=== PATIENT | female | born 1940 | race Caucasian/White ===

== ENCOUNTER 2019-01-23 12:26 | Observation (INO) | payer MEDICARE, BC ==
[~2019-01-23 12:26] MED LIST: ISOVUE-370 76%-LOCM 1 ML ONE
[2019-01-23 13:26] LABS: #Eosinphils 0.2 thou/uL (0.0-0.7); #Monocytes 0.3 thou/uL (0.11-0.59); #Neutrophils 3.3 thou/uL (1.40-6.50); %Basophils 0.7 % (0.0-1.0); %Eosinophils 4.1 % (0.0-10.0); %Lymphocytes 34.6 % (21.0-51.0); %Monocytes 4.6 % (0.0-10.0); Hemoglobin 13.9 g/dL (12.0-16.0); Mean Corpuscular HGB CONC 32.9 g/dL (32.0-36.0); Mean Corpuscular Hemoglobin 30.3 pg (27.0-31.0); Mean Corpuscular Volume 92.3 fL (78.0-98.0); Platelet Count 252 thou/uL (130-400); RBC Distribution Width 12.1 % (11.5-14.5); Red Blood Cell (RBC) Count 4.56 mill/uL (4.20-5.40); White Blood Cell (WBC) Count 5.9 thou/uL (4.8-10.8)
[2019-01-23 13:37] LABS: INR-International Normal Ratio 0.9; PTT 29.1 SEC (22.9-36.1); Prothrombin Time 12.3 SEC (12.0-14.7)
[2019-01-23 13:43] LABS: Bilirubin Negative (Negative); Blood, Urine Negative (Negative); Clarity CLEAR (Clear); Glucose, Urine (Dipstick) Negative (Negative); Leukocyte Small (Negative); Nitrite Negative (Negative); Protein, Urine (Dipstick) Negative (Neg-Trace); Urobilinogen 0.2 mg/dL (0.2-1.0)
[2019-01-23 13:48] LABS: Bacteria/HPF None Seen HPF (None Seen); Hyaline Casts/LPF 0-3 HYALINE CAST LPF (0-3 Hyaline); Squamous Epithelial 0-3 HPF (0-3); WBC/HPF 0-3 HPF (0-3)
[2019-01-23 13:49] LABS: ALT (SGPT) 18 U/L (8-55); AST (SGOT) 22 U/L (5-34); Albumin 4.1 g/dL (3.4-4.8); Alkaline Phosphatase 77 U/L (40-150); Anion Gap 14 mmol/L (10-20); BUN (Urea Nitrogen) 23 mg/dL (9.8-20.1); Bilirubin, Total 0.8 mg/dL (0.2-1.2); Calc. Creatinine Clearance 0 mL/min (70-130); Carbon Dioxide 24 mmol/L (23-31); Chloride 104 mmol/L (98-107); Estimated GFR-MDRD 61; Globulin 2.8 g/dL (2.4-3.5); Glucose 90 mg/dL (83-110); Potassium 4.1 mmol/L (3.5-5.1); Protein, Total 6.9 g/dL (6.0-8.3); Sodium 138 mmol/L (136-145)
[2019-01-23 13:52] LABS: Amphetamine Not Detected (NotDetected); Barbiturates Screen Not Detected (NotDetected); Benzodiazepine Screen Not Detected (NotDetected); Cocaine Metabolite Screen Not Detected (NotDetected); Medtox Control Line Valid? VALID (VALID); Medtox Reader # READER 4; Methadone Not Detected (NotDetected); Methamphetamine Not Detected (NotDetected); Opiate Screen Not Detected (NotDetected); Oxycodone Screen Not Detected (NotDetected); Phencyclidine (PCP) Not Detected (NotDetected); THC/Cannabinoid Screen Not Detected (NotDetected); Tricyclic Screen Not Detected (NotDetected)
--- NOTE | 2019-01-23 14:06 | CT ---
Head CT without contrast 01/23/2019: COMPARISON: 05/11/2013 HISTORY: Blurred vision, difficulty speaking, altered mental status TECHNIQUE: Axial CT imaging at 5 mm intervals from vertex through skull base without contrast FINDINGS: The imaged paranasal sinuses and mastoid air cells are well aerated. There is no displaced calvarial fracture. No intracranial hemorrhage, midline shift, mass effect, or ventricular enlargement. IMPRESSION: No intracranial hemorrhage or displaced calvarial fracture.
[2019-01-23] MEDS ORDERED: diphenhydrAMINE 50 MG/ML VIAL ONE (14:22)
[2019-01-23] MEDS ORDERED: Acetaminophen 500 MG TAB ONE (14:22)
[2019-01-23] MEDS ORDERED: Metoclopramide HCl 10 MG/2 ML VIAL ONE (14:22)
[2019-01-23] MEDS ORDERED: Ondansetron PF 4 MG/2 ML Vial IVP PRN (15:57)
[2019-01-23] MEDS ORDERED: Acetaminophen 500 MG TAB PO PRN (15:57)
[2019-01-23] MEDS ORDERED: hydrALAZINE 20 MG/ML VIAL SLOW IVP PRN (15:57)
[2019-01-23] MEDS ORDERED: diphenhydrAMINE 25 MG CAP PO PRN (15:57)
--- NOTE | 2019-01-23 18:57 | HP ---
CHIEF COMPLAINT: Blurred vision, difficulty speaking. HISTORY OF PRESENT ILLNESS: Ms. Guzman is a very pleasant 78-year-old female with past medical history significant for history of transient ischemic attack in 2013 and ocular migraines diagnosed many years ago, who presented to the hospital with complaints of difficulty speaking along with blurred vision. The patient was on her way to a baby shower, and was shopping at the [employer] in [facility], when her symptoms began. She went to talk to the postal transportation clerk at the desk, and could not form the words that she was trying to say. The patient reports that she was not confused and knew what she wanted to say; however, could not form the words. She also reported some blurry vision. EMS was called, and the patient was taken to our facility for further workup and treatment. On admission, her symptoms had resolved. She had a brief recurrence of her symptoms while she was in the ER, and then quite quickly, her symptoms again completely resolved. In the ER, she did begin to have a slight headache, and was given migraine cocktail, which consisted of metoclopramide injection, diphenhydramine injection, oral Tylenol, and 500 mL bolus of IV saline. Upon my arrival to interview, the patient states that she feels back to her baseline. She is able to converse easily with myself and with her friends that are at the bedside. The patient states that she has had a history of ocular migraines in the past and the blurry vision is consistent with her previous symptoms; however, she does not usually have the difficulty speaking. Workup thus far has included a CT of the brain, which showed no intracranial abnormalities or hemorrhage. Her EKG shows normal sinus rhythm, no acute ST or T-wave changes. The patient was admitted at this facility in 2012, when she also complained of symptoms similar to today with expressive aphasia. Her workup in 2013 was negative. The patient has generally enjoyed good health. She was in her usual state of health up until the day. She reports no recent illnesses, fever, chills, or sick contacts. Her blood pressure on arrival to the ED was in the 180s systolic, but that has now trended down to the 150s systolic. REVIEW OF SYSTEMS: 12-point review of systems performed and is negative, except that as stated above. The patient has generally enjoyed very good health. She denies any blood in her urine or stool. She has had no fevers or chills. Her appetite has been good. She reports no unintentional weight loss. She follows regularly with her primary care physician, Dr. Arnold. ALLERGIES: BAND-AID. HOME MEDICATIONS: 1. Levothyroxine 88 mcg daily. 2. Atorvastatin 60 mg at bedtime. 3. Lunesta 3 mg at bedtime. 4. Aspirin 325 mg daily. 5. Zyrtec p.r.n. 6. Multivitamin daily. 7. Resveratrol supplement daily. 8. CoQ10 200 mg supplement daily. 9. Pepcid Complete. 10. Niacinamide 1000 mg daily. 11. Vitamin C supplement. 12. MiraLAX p.r.n. PAST MEDICAL HISTORY: Hypothyroidism; hyperlipidemia; previous TIA; basal and squamous cell carcinoma, status post excision; hyperlipidemia. PAST SURGICAL HISTORY: Appendectomy, tonsillectomy, total hysterectomy with bilateral salpingo-oophorectomy as well. She states her uterus was removed secondary to a benign tumor. SOCIAL HISTORY: The patient has a very remote history of smoking and quit when she was 39, which was approximately 40 years ago. She drinks alcohol very occasionally. There is no illicit drug use. The patient is a , her several years ago. She has 2 children and many grandchildren. 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 FAMILY HISTORY: Positive for colon cancer in her brother and positive for colon polyps in her mother. One of her sisters had breast cancer. CODE STATUS: The patient is a full code. PHYSICAL EXAMINATION: GENERAL: This is a very pleasant and well-appearing 78-year-old female, resting comfortably in the ER bed in no acute distress. HEENT: Head is atraumatic and normocephalic. Mucous membranes are moist. Extraocular movements intact. NECK: No lymphadenopathy. No carotid bruits. Trachea is midline. No JVD. CV: S1 and S2. Regular rate and rhythm. No appreciable murmurs, rubs, or gallops. LUNGS: Regular respiratory rate and pattern. Clear to auscultation bilaterally. ABDOMEN: Soft. Positive bowel sounds. Soft, nontender. No organomegaly. EXTREMITIES: +2 DP pulses bilaterally. No edema. SKIN: Warm and dry. No rashes or discolorations. NEUROLOGIC: Cranial nerves 2 through 12 are intact. The patient is alert, awake, and oriented, and has no speech deficits at this time. She is nonfocal. LABORATORY DATA: White blood cell count 5.9, hemoglobin 13.9, hematocrit 42.1, platelets are 252. PT 12.3, INR 0.9, APTT 29.1. Sodium 138, potassium 4.1, chloride 104, BUN 23, creatinine 0.89, calcium 10, bilirubin 0.8, AST 22, ALT 18 , alkaline phosphatase 77. Troponin is negative. TSH is 0.8483. Tox screen is negative. Urinalysis shows trace ketones and a small amount of leukocyte esterase, no white blood cell count or bacteria noted. IMAGING STUDIES: EKG shows sinus rhythm, no acute ST or T-wave changes. No arrhythmia noted. CT of the head shows no intracranial abnormality. ASSESSMENT: 1. Expressive aphasia and vision changes, questionable cerebrovascular accident/transient ischemia attack versus ocular migraine. 2. History of ocular migraines. 3. History of transient ischemic attack in 2012, on aspirin and statin. 4. Hypothyroidism. 5. Elevated blood pressure reading on arrival, trending down, no previous history or diagnosis of hypertension. 6. Hyperlipidemia. PLAN: Neurology consult has been placed by the ER doctor. We will proceed with brain MRI and CTA of the head and neck. We will also obtain a 2D transthoracic echocardiogram. We will continue telemetry monitoring to assess for any underlying arrhythmia while she is here. DVT and GI prophylaxis. We will also continue aspirin and statin along with her other home medications. Further recommendations based on findings of imaging and hospital course. This patient has been discussed with Dr. Curry, who agrees with the plan as outlined above. Job ID: [id number] [facility]
[2019-01-23 19:21] VITALS: BMI 25.0
--- NOTE | 2019-01-23 20:10 | CT ---
CTA HEAD WITH IV CONTRAST AND 3D POSTPROCESSING CTA NECK WITH IV CONTRAST AND 3D POSTPROCESSING 01/23/19 HISTORY: TIA. FINDINGS: There is calcified plaque. There is good flow in the vertebrobasilar and carotid artery systems on ei ther side. There is mild (up to 30%) stenosis of the right carotid bulb. No major branch occlusion, h igh grade stenosis or aneurysm formation is seen. The airway is patent. No cervical lymphadenopathy is seen. The parotid, submandibular and thyroid glands are unremarkable. There are degenerative changes in the spine. IMPRESSION: Mild stenotic changes without evidence of major branch occlusion, high grade stenosis or aneurysm for mation. This exam was interpreted in consultation with Dr Marcio Adler who concurs. POS: BRETT
[2019-01-23] MEDS ORDERED: Enoxaparin Sodium 40 MG/0.4 ML SYRINGE SC SCH (21:00)
[2019-01-23] MEDS ORDERED: Atorvastatin Calcium 40 MG TAB PO SCH (21:00)
[2019-01-23] MEDS ORDERED: Temazepam 15 MG CAP PO PRN (22:07)
[2019-01-23] MEDS: Famotidine 20 MG TAB PO SCH (22:37)
[2019-01-24 05:53] LABS: Cardiac Risk 4.2 (Less than 4.5)
[2019-01-24] MEDS ORDERED: Levothyroxine Sodium 88 MCG TAB PO SCH (06:00)
[2019-01-24] MEDS ORDERED: Lorazepam 1 MG TAB PO SCH ×2 (06:15→11:00)
[2019-01-24] MEDS: Famotidine 20 MG TAB PO SCH (08:55)
[2019-01-24] MEDS ORDERED: Aspirin 325 mg Enteric Coated Tablet PO SCH (09:00)
[2019-01-24] MEDS ORDERED: Lorazepam 2 MG/ML VIAL SLOW IVP SCH (10:45)
--- NOTE | 2019-01-24 13:34 | MRI ---
MRI BRAIN PERFORMED WITHOUT CONTRAST ENHANCEMENT: Date: 01/24/19 HISTORY: Slurred speech that has resolved. History of TIA in 2015. COMPARISON: Report of CT angio of head and brain that was performed yesterday. FINDINGS: There is some generalized ventricular and sulcal prominence. There is some increased T2 and FLAIR sig nal change within the white matter consistent with chronic white matter change. On the diffusion-weighted sequence, there is no evidence for any type of acute infarct. No evidence f or hemorrhage or mass effect. IMPRESSION: No acute intracranial abnormalities. POS: BRETT
[2019-01-24] MEDS ORDERED: Lisinopril 5 MG TAB PO SCH (15:30)
[2019-01-24 15:58] VITALS: BP 143/78; TEMP 98.6
--- NOTE | 2019-01-24 21:48 | CON ---
DATE OF CONSULTATION: 01/24/2019 CHIEF COMPLAINT: CVA. HISTORY OF PRESENT ILLNESS: The patient is a 78-year-old lady, who was at a store yesterday at noon. She could not process or think and there was no pain. She had ocular migraine for 20 minutes. No weakness or numbness was experienced by her and she could not remember if she was weak because there was a lot of people paying attention to her and trying to get her some help. The patient has never experienced this type of symptoms. PREVIOUS MEDICAL HISTORY: Positive for hypercholesterolemia and she also has hypothyroidism, previous TIA, basal and squamous cell cancer, status post excision and hyperlipidemia. PAST SURGICAL HISTORY: Positive for appendectomy, tonsillectomy, and total hysterectomy for benign tumor. CURRENT MEDICATIONS: At home: 1. Levothyroxine. 2. Atorvastatin. 3. Lunesta. 4. Aspirin. 5. Zyrtec. 6. Multivitamin. 7. CoQ10. 8. Resveratrol. 9. Pepcid. 10. Niacinamide. 11. Vitamin C. 12. MiraLAX. SOCIAL HISTORY: Remote history of smoking, quit at age 39. She drinks occasional alcohol. She lives alone. She continues to work at [employer]. 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 She has many grandchildren and children. FAMILY HISTORY: Mother at 79. Father also in his 70s, he had atherosclerosis. Sister had melanoma last year and breast cancer for 10 years. Her brother in his 70s from colon cancer. She has another brother, who is 75 years old. Her son is 57, has hypercholesterolemia and coronary artery disease. Daughter is 55 and has migraine headaches. REVIEW OF SYSTEMS: PULMONARY: Negative for shortness of breath. CARDIOVASCULAR: Negative for chest pain or congestive heart failure. GI: Negative for gastrointestinal dysfunction such as nausea, vomiting, or diarrhea. OPHTHALMOLOGIC: Positive for ocular migraine with visual aura. NEUROLOGIC: Positive for migraine plus word-finding difficulties and confusion. DERMATOLOGIC: Negative for skin lesions. LABORATORY DATA: Her workup so far. Labs: White count 5.9, hemoglobin 13.9, hematocrit 42.1, platelets 252. Chemistry; sodium 138, potassium 4.1, chloride 104, bicarb 24, BUN 23, creatinine 0.89. AST 22, ALT 18, alkaline phosphatase 77, HDL is 48, LDL 125, cholesterol 203, triglycerides 149, and TSH 0.84. Her CT angiogram was negative for any significant stenosis or occlusions and her MRI of the brain showed no acute intracranial abnormalities. Echocardiogram was also within normal limits. PHYSICAL EXAMINATION: VITAL SIGNS: Blood pressure was 166/79, temperature 97.7, pulse 77, and respiratory rate 18. GENERAL APPEARANCE: Well-built, well-nourished lady, who is very pleasant. CHEST: Clear vesicular breathing. CARDIOVASCULAR: S1 and S2 heard. No murmurs. Carotids are clear. ABDOMEN: Soft and nontender. No organomegaly noted. NEUROLOGIC: Motor, bulk normal. Tone normal. Strength 5/5 throughout in iliopsoas, hamstrings, quadriceps, ankle dorsiflexion, plantar flexion, deltoid, biceps, triceps, wrist extension and flexion, finger extension and flexion bilaterally. Deep tendon reflexes were 2+ throughout. Sensory normal touch bilaterally to upper and lower extremities, and face. Cerebellar, normal [id number] and [id number]. Gait not tested. IMPRESSION: The patient is a 78-year-old very active and relatively healthy lady, who is still working. She had sudden onset of ocular migraine along with some difficulty thinking and processing information, which lasted about 20 minutes. She is unsure if she had any motor weakness or numbness, but she had to sit down because there were a lot of people paying attention to her at that point. Her CT angiogram is negative for any vascular disease. At this time, differential diagnosis is transient ischemic attack versus complicated migraine, either of which is likely in her case. RECOMMENDATIONS: I suggested that she continue statin and aspirin for now for stroke prophylaxis. She can follow up with Dr. Seals as outpatient. Job ID: [id number]
[2019-01-25] MEDS ORDERED: Lisinopril 5 MG TAB PO SCH (09:00)
--- NOTE | 2019-01-26 15:24 | DIS ---
DATE OF ADMISSION: 01/23/2019 DATE OF DISCHARGE: 01/24/2019 ALLERGIES: BANDAID ADMISSION DIAGNOSIS: Blurred vision and difficulty speaking. DISCHARGE DIAGNOSES: 1. Expressive aphasia and vision changes, secondary to TIA versus ocular migraines, CVA workup negative 2. History of TIA 2012 3. History of ocular migraines 4. Newly diagnosed hypertension 5. Hypothyroidism LABS: WBC 5.9, HCT42.1, Hgb 13.9, PLT 252, Trop negative, Calcium 10, Cr. 0.89, NA+ 138, K= 4.1 , BUN 23, TSH 0.8483, LFTs within normal limits, UA an tox screen neg. IMAGING: Brain MRI: showed no Intracranial abnormalities CTA of the [place] showed mild stenotic changes without evidence of major branch occlusion BRAIN CT: no intracranial abnormalities ECHOCARDIOGRAM: EF 55-60%, Mod MR, mild to mod TR HOSPITAL COURSE: The patient is a very pleasant female with PMH significant for TIA in 2012, and history ocular migraines diagnosed many years ago, who presented to the hospital with complaints of difficulty speaking and blurry vision. Please see H and P for full details. The patient reports symptoms consistent with expressive aphasia. She was shopping, and could not say the words she was thinking of to the parts order and stock clerk at the counter. There was no facial droop. Associated symptoms included blurred vision. By the time of her arrival at the ED, her symptoms had resolved. She had a brief recurrence of symptoms in ER, along with SPEARS, and was given a migraine cocktail with complete resolution of symptoms. Her stroke workup was negative, including MRI, CTA, and head CT. Echo unremarkable aside from some moderate MR, which is asymptomatic. Neurology was consulted, and recommended continued therapy with ASA and statin. Throughout the course of her stay, she had some high BP readings into the 170s systolic, and lisinopril was started, which she tolerated well. PHYSICAL EXAMINATION: VITAL SIGNS: BP 143/67, P=70s, O2 sat 100% on RA GENERAL: female, in no acute distress. HEENT: Head, atraumatic and normocephalic. Mucous membranes are moist. NECK: Supple. No lymphadenopathy. No carotid bruits. Trachea is midline. CV: S1 and S2. Regular rate and rhythm. No appreciable murmurs, rubs, or gallops. LUNGS: Clear to auscultation bilaterally. Regular respiratory rate and pattern. ABDOMEN: Positive bowel sounds. Soft, nontender NEUROLOGIC: Cranial nerves II through XII intact, patient non-focal. DISCHARGE MEDICATIONS: The patient will continue her home medications: 1. Aspirin 325 mg daily. 2. Lipitor 60 mg at bedtime. 3. Levothyroxine 88 mcg daily. 4. Lunesta 3 mg at bedtime. 5. Zyrtec p.r.n. 6. One multivitamin daily. 7. Resveratrol supplement. 8. CoQ10 200 mg supplement. 9. Pepcid complete. 10. Vitamin C supplement. 11. Niacinamide 1000 mg daily. 12. MiraLAX p.r.n. New medication will be lisinopril 5 mg daily. CONDITION AT DISCHARGE: Stable. DISCHARGE DISPOSITION: Home. PLAN: The patient will continue aspirin and statin. She will continue her lisinopril and monitor her blood pressure at home. I have explained that a possible side effect of this medicine is dry cough. She will follow up with her primary care physician, Dr. Arnold, and continue aggressive risk factor modification. The patient will be discharged home in good condition today. Care discussed with Dr. Curry who agrees with the above. Job ID: [id number] MTDD
== END 2019-01-24 17:10 | disposition home or self-care (01) ==
LOC: ERS 12:26 → 2SE 17:30
PROVIDERS: ADMIT Internal Medicine; ATTEND Internal Medicine
DX: H53.8 Other visual disturbances (principal); R47.01 Aphasia; E03.9 Hypothyroidism, unspecified; E78.5 Hyperlipidemia, unspecified; E78.00 Pure hypercholesterolemia, unspecified; I10 Essential (primary) hypertension; Z86.73 Personal history of transient ischemic attack (TIA), and cerebral infarction without residual deficits; Z87.891 Personal history of nicotine dependence; Z79.82 Long term (current) use of aspirin; Z79.899 Other long term (current) drug therapy; Z91.048 Other nonmedicinal substance allergy status
CPT/HCPCS: 70450; 70496; 70498; 70551; 80061; 80306; 84484; 85610; 85730; 93005; 93306; 96365; 96372; 96375 ×2; 97139; 98960; 99285; G0378 ×2; 36415; 80053; 81003; 81015; 84443; 85025; 96361; J1200; J1650; J2060; J2765; Q9966

== ENCOUNTER 2022-02-27 09:16 | Outpatient (CLI) | payer MEDICARE, BC | END 2022-02-27 09:17 | disposition home or self-care (01) | LOC: BICMRI 09:16 | PROVIDERS: ATTEND Specialist | DX: C50.919 Malignant neoplasm of unspecified site of unspecified female breast (principal); N63.15 Unspecified lump in the right breast, overlapping quadrants | CPT/HCPCS: A9577; C8908 ==

== ENCOUNTER 2022-03-06 10:02 | Outpatient (CLI) | payer MEDICARE, BC ==
[2022-03-06 11:37] LABS: #Basophils 0.1 10x3/uL (0.0-0.2); #Eosinphils 0.2 10x3/uL (0.0-0.5); #Monocytes 0.3 10x3/uL (0.0-1.1); #Neutrophils 2.3 10x3/uL (1.5-8.4); %Basophils 1.3 % (0.0-2.0); %Eosinophils 4.7 % (0.0-6.0); %Lymphocytes 35.6 % (18.0-47.0); %Monocytes 7.6 % (0.0-10.0); %Neutrophils 50.6 % (40.0-75.0); Hemoglobin 14.6 g/dL (12.0-15.5); Mean Corpuscular HGB CONC 32.2 g/dL (32.0-36.0); Mean Corpuscular Hemoglobin 30.3 pg (27.0-33.0); Mean Platelet Volume 9.9 fl (7.4-10.4); Platelet Count 228 10x3/uL (150-450); RBC Distribution Width 13.2 % (11.5-14.5); Red Blood Cell (RBC) Count 4.82 10x6/uL (3.90-5.03); White Blood Cell (WBC) Count 4.5 10x3/uL (3.5-10.5)
[2022-03-06 11:56] LABS: Anion Gap 14 mmol/L (10-20); BUN (Urea Nitrogen) 17 mg/dL (9.8-20.1); Calc. Creatinine Clearance 0 mL/min (70-130); Calcium 10.1 mg/dL (7.8-10.44); Carbon Dioxide 27 mmol/L (23-31); Chloride 108 mmol/L (98-107); Glucose 103 mg/dL (83-110); Potassium 4.6 mmol/L (3.5-5.1); Sodium 144 mmol/L (136-145)
== END 2022-03-06 10:03 | disposition home or self-care (01) ==
LOC: LABBT 10:02
PROVIDERS: ATTEND Specialist
DX: Z01.812 Encounter for preprocedural laboratory examination (principal); C50.919 Malignant neoplasm of unspecified site of unspecified female breast; Z20.822 Contact with and (suspected) exposure to COVID-19
CPT/HCPCS: 80048; 85025; U0003; U0005

== ENCOUNTER 2022-03-09 06:51 | Day surgery (SDC) | payer MEDICARE, BC ==
[2022-03-07 15:57] VITALS: BMI 22.4
[2022-03-09] MEDS ORDERED: Bupivacaine 0.25% HCL 30 ML VIAL ONE (11:42)
[2022-03-09] MEDS ORDERED: Lidocaine 1% w/Epinephrine 1:100K 20 ML VIAL ONE (11:42)
[2022-03-09] MEDS ORDERED: Isosulfan Blue 50 MG/5 ML VIAL ONE ×2 (11:42→12:59)
[2022-03-09] MEDS ORDERED: Ketorolac Tromethamine 30 MG/ML VIAL ONE (11:45)
[2022-03-09] MEDS ORDERED: Acetaminophen 500 MG TAB ONE (11:45)
[2022-03-09] MEDS ORDERED: CEFAZOLIN 2 GM VIAL ONE (12:23)
[2022-03-09] MEDS ORDERED: Sodium Chloride 0.9% 100 ML ONE (12:23)
[2022-03-09] MEDS ORDERED: fentaNYL Citrate/PF 100 MCG/2 ML SYRINGE ONE (12:28)
[2022-03-09] MEDS ORDERED: Phenylephrine 10 MG/ML VIAL ONE (12:38)
[2022-03-09] MEDS ORDERED: PROPOFOL 200 MG/20 ML VIAL ONE (12:47)
[2022-03-09] MEDS ORDERED: Lidocaine 1% PF 5 ML VIAL ONE (12:47)
[2022-03-09] MEDS ORDERED: Dexamethasone 20 MG/5 ML VIAL ONE (12:47)
[2022-03-09] MEDS ORDERED: Ondansetron PF 4 MG/2 ML Vial ONE (12:47)
[2022-03-09] MEDS ORDERED: PHENYLEPHRINE-NS 100 MCG/ML 10 ML SYRINGE ONE (12:47)
== END 2022-03-09 16:30 | disposition home or self-care (01) ==
LOC: SDC 06:51
PROVIDERS: ATTEND Specialist
PROC: 0HBT0ZZ Excision of Right Breast, Open Approach (ICD-10-PCS; principal; 2022-03-09)
PROC: 07B50ZX Excision of Right Axillary Lymphatic, Open Approach, Diagnostic (ICD-10-PCS; 2022-03-09)
DX: C50.411 Malignant neoplasm of upper-outer quadrant of right female breast (principal); D24.1 Benign neoplasm of right breast; E03.9 Hypothyroidism, unspecified; Z86.73 Personal history of transient ischemic attack (TIA), and cerebral infarction without residual deficits; Z79.02 Long term (current) use of antithrombotics/antiplatelets; Z79.82 Long term (current) use of aspirin; Z79.890 Hormone replacement therapy; Z79.899 Other long term (current) drug therapy; Z91.048 Other nonmedicinal substance allergy status
CPT/HCPCS: 19281 ×2; 19301; 38525; 38900; 76098; 78195; A4648; A9541; Q9968; 88307; 88341; 88342; J0690; J1100; J1885; J2370; J2405; J2704; J3490; S0020

== ENCOUNTER 2022-03-23 12:09 | Outpatient (CLI) | payer MEDICARE, BC | END 2022-03-23 12:10 | disposition home or self-care (01) | LOC: LABBT 12:09 | PROVIDERS: ATTEND Specialist | DX: C50.919 Malignant neoplasm of unspecified site of unspecified female breast (principal); Z20.822 Contact with and (suspected) exposure to COVID-19 | CPT/HCPCS: U0003; U0005 ==

== ENCOUNTER 2022-03-27 08:11 | Day surgery (SDC) | payer MEDICARE, BC ==
[2022-03-26 09:14] VITALS: BMI 22.9
[2022-03-27] MEDS ORDERED: Acetaminophen 500 MG TAB ONE (08:53)
[2022-03-27] MEDS ORDERED: Ketorolac Tromethamine 30 MG/ML VIAL ONE (08:53)
[2022-03-27] MEDS ORDERED: Sodium Bicarbonate 2.5 MEQ/5 ML VIAL ONE (12:54)
[2022-03-27] MEDS ORDERED: Bupivacaine 0.25% HCL 30 ML VIAL ONE (12:54)
[2022-03-27] MEDS ORDERED: Lidocaine 1% w/Epinephrine 1:100K 20 ML VIAL ONE (12:54)
[2022-03-27] MEDS ORDERED: fentaNYL Citrate/PF 100 MCG/2 ML SYRINGE ONE (12:59)
[2022-03-27] MEDS ORDERED: Sodium Chloride 0.9% 100 ML ONE (13:04)
[2022-03-27] MEDS ORDERED: CEFAZOLIN 2 GM VIAL ONE (13:04)
[2022-03-27] MEDS ORDERED: Lidocaine 1% PF 5 ML VIAL ONE (13:12)
[2022-03-27] MEDS ORDERED: Ondansetron PF 4 MG/2 ML Vial ONE (13:12)
[2022-03-27] MEDS ORDERED: PROPOFOL 200 MG/20 ML VIAL ONE (13:12)
[2022-03-27] MEDS ORDERED: Fentanyl 100 MCG/2 ML VIAL ONE ×2 (14:41→15:07)
[2022-03-27] MEDS ORDERED: HYDROcodone/Acetaminophen 5/325 mg Tablet ONE (16:26)
== END 2022-03-27 17:20 | disposition home or self-care (01) ==
LOC: SDC 08:11
PROVIDERS: ATTEND Specialist
PROC: 0HBT0ZZ Excision of Right Breast, Open Approach (ICD-10-PCS; principal; 2022-03-27)
DX: D05.01 Lobular carcinoma in situ of right breast (principal); E03.9 Hypothyroidism, unspecified; M85.80 Other specified disorders of bone density and structure, unspecified site; Z86.73 Personal history of transient ischemic attack (TIA), and cerebral infarction without residual deficits; Z79.02 Long term (current) use of antithrombotics/antiplatelets; Z79.82 Long term (current) use of aspirin; Z79.890 Hormone replacement therapy; Z79.899 Other long term (current) drug therapy; Z91.048 Other nonmedicinal substance allergy status
CPT/HCPCS: 19301; C1889; 88307; J0690; J1885; J2405; J2704; J3010; J3490; S0020

== ENCOUNTER 2024-07-22 14:15 | Outpatient (CLI) | payer MEDICARE, BC | END 2024-07-22 14:16 | disposition home or self-care (01) | LOC: BICRAD 14:15 | PROVIDERS: ATTEND Family Medicine | DX: R05.3 Chronic cough (principal); K44.9 Diaphragmatic hernia without obstruction or gangrene | CPT/HCPCS: 71046 ==